=== PATIENT | female | born 1970 | race Caucasian/White ===

== ENCOUNTER 2023-01-05 13:04 | Outpatient (AMB) | payer OTHER, SELFPAY ==
--- NOTE | 2023-01-05 13:13 | A.OFFVIS_ITS ---
Intake Vital Signs 01/05/23 13:15 Height 5 ft 5 in Weight 242 lb 8.136 oz BMI 40.4 Intake Visit Reasons: ER follow up, GERD Intake Note: Sheila presents in the office as a ER follow up GERD. CC: She states that she was seen in the ER and this is a follow up. She was having a reaction at [facility] - there was wax on the floor and she feels it sent her to the ED. Pains in the stomach, constipation, diarrhea, full after one bite. Bloating in the stomach all the time and she gets a gas feeling in her throat and gas feels stuck in her stomach. Shipper Required: No Allergies Penicillins Allergy (Mild, Verified 01/05/23 13:15) Unknown HPI ER follow up, GERD HPI Details 52-year-old female is here today for inabdelrahman hernández consultation. Patient was accompanied by her stepmother who is helping translate for her per patient's request. 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 Patient states that few weeks ago she was cleaning floors in closed area, began to smell wax and started to feel nauseous. Patient's heart rate went up patient felt lightheaded and went to [facility] where she was seen in the ER. Her EKG and blood work was normal. Patient continues to have epigastric discomfort postprandially. Patient also reports occasional dyspepsia without dysphagia or odynophagia. Patient also reports postprandial abdominal bloating, constipation. No BMs for 2-3 days. Patient denies melena, hematochezia, unintentional weight loss or ribbon like stools. Last colonoscopy in 2019. Patient also had upper endoscopy then as well. Patient currently is taking famotidine as given to her by her PCP, however she feels like it is not helping her. Patient denies eating late at night. Reports that she frequently feels like she gets full very quickly. [facility] Surgical History (Updated 01/05/23 @ 13:16 by KIM Holguin) History of esophagogastroduodenoscopy (EGD) Hx of colonoscopy Social History (Updated 01/05/23 @ 13:16 by KIM Holguin) Alcohol intake: current Alcohol intake frequency: does not drink Patient Tobacco Use Status: Never used Tobacco Review of Systems Const Denies weight gain and Denies weight loss ENT Reports no additional complaints, Denies dysphagia and Denies odynophagia Card Reports no additional complaints Resp Reports no additional complaints GI Denies abdominal pain, Denies belching, Denies melena, Reports bloating, Reports constipation, Denies dysphagia, Denies excessive flatus, Reports early satiety, Denies dyspepsia, Reports heartburn, Denies diarrhea, Denies loose stools, Denies nausea, Denies odynophagia and Denies vomiting Reports no additional complaints Musc Reports no additional complaints Neuro Reports no additional complaints Psych Reports no additional complaints Endo Reports no additional complaints Physical Exam Vital Signs: BMI result Body Mass Index 40.4 Const General: healthy appearing, no acute distress and well developed Nutritional Appearance: obese Orientation/consciousness: patient oriented x3 HEENT Head: Yes normal to inspection, Yes normocephalic and Yes atraumatic Face and sinus: Yes normal facial exam Mouth: Normal oral and palatal mucosa present Throat: Yes posterior oropharynx normal, Yes tonsils normal and Yes uvula midline Eyes General: appearance normal, both eyes and all related structures Neck Neck: Yes normal visual inspection, Yes full ROM and Yes trachea midline Thyroid: Thyroid normal Resp Effort & Inspection: normal respiratory effort, able to speak in complete sentences, no tracheal deviation and symmetric chest movement Auscultation: clear to auscultation bilaterally Cardio Rate: regular rate Heart sounds: S1 normal heart sound present and S2 normal heart sound present GI Inspection: Yes normal to inspection, No distended and Yes obesity Palpation (GI): Soft to palpation, not firm, nontender and No hepatosplenomegaly present Auscultation: normal bowel sounds General: Yes no CVA tenderness Back/Spine/Pelvis Back: no CVA tenderness Skin General skin exam: elasticity normal, turgor normal and dry skin Neuro General: patient oriented x3 Psych Appearance: grossly normal Mental Status: mental status grossly normal Assessment & Plan Assessment & Plan (1) Postprandial epigastric pain: Code(s): R10.13 - Epigastric pain (2) Early satiety: Code(s): R68.81 - Early satiety (3) Dyspepsia: Code(s): R10.13 - Epigastric pain Plan Frequent dyspepsia and acid reflux. Patient will start taking Nexium in the morning half an hour before breakfast. Patient can take famotidine at bedtime. However discussed with patient avoiding dietary triggers late night snacking. Staying upright for minimal 3 hours after meals discussed with patient. Patient can start Citrucel in the morning and senna at bedtime to help her eliminate her bowels completely. Will send patient for gastric emptying study. If gastroparesis found patient should stop fiber therapy. Will rule out pancreatic insufficiency and H pylori. Will treat empirically if positive. Will check vitamin-D, B12 and folate. Recent blood work reviewed and was all normal. Patient had normal lipase and normal liver profile. I will see patient in 4 months, sooner on as needed basis. Patient is agreeable to this plan and verbalizes understanding of instructions. She was given the opportunity to ask questions and all questions answered. Thank you for allowing me to participate Orders: Orders NM gastric emptying study 01/05/23 K21.9 - Gastro-esophageal reflux disease without esophagitis Vitamin D 25-OH (D2 and D3) 01/05/23 E55.9 - Vitamin D deficiency, unspecified Vitamin B12 and Folate 01/05/23 R19.7 - Diarrhea, unspecified Pancreatic Elastase-1 01/05/23 R10.9 - Unspecified abdominal pain H pylori Ag Stool 01/05/23 K21.9 - Gastro-esophageal reflux disease without esophagitis Medications: New esomeprazole magnesium (Nexium) 40 mg PO DAILY 30 caps 5RF K21.9 - Gastro- esophageal reflux disease without esophagitis methylcellulose (laxative) (Citrucel) take it with full glass of water 500 mg PO DAILY 30 tabs 2RF K59.00 - Constipation, unspecified sennosides (Natural Senna Laxative) 17.2 mg (2 x 8.6 mg) PO BEDTIME 60 tabs 3RF constipation K59.00 - Constipation, unspecified famotidine 40 mg PO BEDTIME 30 tabs 3RF K21.9 - Gastro-esophageal reflux disease without esophagitis Coding Level of Care Code New Pt Level 4 (55116) Diagnoses Postprandial epigastric pain R10.13 Early satiety R68.81 Dyspepsia R10.13 Time Spent (min) 45 Comment 30 minutes spent with patient and additional 15 minutes spent reviewing her records
[2023-01-05 13:15] VITALS: BMI 40.4
== END 2023-01-05 13:56 | disposition home or self-care (01) ==
PROVIDERS: Visit Provider Nurse Practitioner Family
DX: R10.13 Epigastric pain (principal); R68.81 Early satiety
CPT/HCPCS: 99204

== ENCOUNTER → 2023-01-05 13:04 | Outpatient (BNVA) | payer OTHER, SELFPAY | PROVIDERS: Visit Provider Nurse Practitioner Family ==